=== PATIENT | female | born 1980 | race Caucasian/White ===

== ENCOUNTER 2019-12-28 08:51 | Outpatient (CLI) | payer BC ==
--- NOTE | 2019-12-28 10:37 | MRI ---
MRI Upper Ext Jt Lt WO Con History: Acute left shoulder pain Comparison: Radiograph of the chest and CT of the chest November 27, 2019 Findings: Biceps tendon: Bifid extra articular biceps tendon with the intra-articular component havin g attachment to the biceps labral complex in the superior capsule. Labrum: Chondrolabral junctional tear of the anterior and anterior-inferior labrum extending into the inferior labrum. Rotator cuff: Along the posterior one half fibers supraspinatus tendon at the footprint of partial ar ticular surface tendon avulsion involving 20% of the tendon thickness with a 7 mm gap. Mild tendinosis of infraspinatus tendon. Mild tendinosis subscapularis. Bones: Minimally impacted fracture of the infraspinatus footprint greater tuberosity. Type II acromion. Type B os acromiale. Cartilage: No full-thickness chondral defect. Muscles: The muscle atrophy. No significant edema. Soft tissues: Partial interstitial type tearing central axillary pouch inferior glenohumeral ligament . Impression: 1. Minimally impacted fracture through the infraspinatus footprint greater tuberosity extending along the medullary cavity with evidence of healing. 2. 20% partial articular surface tendon avulsion from the footprint posterior one half fibers infrasp inatus tendon with a 7 mm gap. 3. Type B os acromiale with small volume edema on either side of the synchondrosis. 4. Chondral labral junction tear throughout the anterior and inferior labrum. 5. Partial tear of the central axillary pouch inferior glenohumeral ligament.
== END 2019-12-28 08:52 | disposition home or self-care (01) ==
LOC: TBSIIMAG 08:51
PROVIDERS: ATTEND Internal Medicine
DX: M25.512 Pain in left shoulder (principal); R29.898 Other symptoms and signs involving the musculoskeletal system; S42.92XD Fracture of left shoulder girdle, part unspecified, subsequent encounter for fracture with routine healing; R60.0 Localized edema; S43.402A Unspecified sprain of left shoulder joint, initial encounter